=== PATIENT | male | born 1945 | race Caucasian/White ===

== ENCOUNTER 2018-11-22 13:05 | Emergency (ER) | payer OTHER ==
[~2018-11-22] VITALS: Ht 172.7 cm; Wt 114.8 kg
[2018-11-22] MEDS ORDERED: LISINOPRIL2.5 MG (13:19)
[2018-11-22] MEDS ORDERED: SYNTHROID112 MCG (13:19)
== END 2018-11-22 20:36 | disposition home or self-care (01) ==
LOC: ER 13:05
DX: K29.70 Gastritis, unspecified, without bleeding (principal)

== ENCOUNTER 2019-08-02 05:55 | Day surgery (SDC) | payer OTHER ==
[~2019-08-02 05:55] MED LIST: LISINOPRIL2.5 MG; SYNTHROID112 MCG
[2019-08-02] MEDS ORDERED: CARAFATE1 GM PO (08:32)
== END 2019-08-02 09:40 | disposition home or self-care (01) ==
LOC: AMB-ENDOS 05:55
DX: D12.3 Benign neoplasm of transverse colon (principal); Z85.048 Personal history of other malignant neoplasm of rectum, rectosigmoid junction, and anus

== ENCOUNTER 2020-01-09 08:00 | Day surgery (SDC) | payer OTHER ==
[~2020-01-09 08:00] MED LIST changes: +CARAFATE1 GM PO
[2020-01-09] MEDS ORDERED: KETO10TA2 PO (15:54)
== END 2020-01-09 13:00 | disposition home or self-care (01) ==
LOC: CIR.AMB 08:00
DX: C18.8 Malignant neoplasm of overlapping sites of colon (principal); C78.7 Secondary malignant neoplasm of liver and intrahepatic bile duct
CPT/HCPCS: 36561; C1751

== ENCOUNTER 2021-05-27 08:04 | Outpatient (CLI) | payer OTHER ==
[~2021-05-27 08:04] MED LIST changes: +KETO10TA2 PO
== END 2021-05-27 08:05 | disposition home or self-care (01) ==
LOC: NUCLEAR 08:04
PROVIDERS: ATTEND Internal Medicine
DX: C20 Malignant neoplasm of rectum (principal); C78.7 Secondary malignant neoplasm of liver and intrahepatic bile duct
CPT/HCPCS: 78815; A9552

== ENCOUNTER 2021-10-20 08:16 | Outpatient (CLI) | payer OTHER | END 2021-10-20 08:17 | disposition home or self-care (01) | LOC: NUCLEAR 08:16 | PROVIDERS: ATTEND Internal Medicine | DX: C20 Malignant neoplasm of rectum (principal); C78.7 Secondary malignant neoplasm of liver and intrahepatic bile duct; N18.31 Chronic kidney disease, stage 3a ==

== ENCOUNTER 2022-03-25 08:03 | Outpatient (CLI) | payer OTHER | END 2022-03-25 08:09 | disposition home or self-care (01) | LOC: LAB 08:03 | PROVIDERS: ATTEND Surgery | DX: Z85.038 Personal history of other malignant neoplasm of large intestine (principal); Z85.048 Personal history of other malignant neoplasm of rectum, rectosigmoid junction, and anus; C18.9 Malignant neoplasm of colon, unspecified; C78.01 Secondary malignant neoplasm of right lung; C78.02 Secondary malignant neoplasm of left lung ==

== ENCOUNTER 2022-03-31 07:58 | Outpatient (CLI) | payer OTHER | END 2022-03-31 14:12 | disposition home or self-care (01) | LOC: TOM 07:58 | PROVIDERS: ATTEND Surgery | DX: C18.9 Malignant neoplasm of colon, unspecified (principal); Z85.038 Personal history of other malignant neoplasm of large intestine; Z85.048 Personal history of other malignant neoplasm of rectum, rectosigmoid junction, and anus; C78.01 Secondary malignant neoplasm of right lung; C78.02 Secondary malignant neoplasm of left lung | CPT/HCPCS: 71260; 74177; Q9965 ==